=== PATIENT | female | born 1985 | race Caucasian/White ===

== ENCOUNTER 2018-07-17 18:03 | Inpatient (IN) ==
[2018-07-17 21:14] LABS: Amphetamine Urine With Conf Neg (Neg); Benzodiazepine Urine With Conf Neg (Neg)
[2018-07-17 21:17] LABS: Bacteria,Urine Rare /hpf; Bilirubin,Urine Negative (Negative); Clarity,Urine Clear (Clear); Color,Urine Straw (Yellw/Straw); Glucose,Urine (UA) Negative (Negative); Leukocyte Esterase,Urine Negative (Negative); Nitrite,Urine Negative (Negative); Specific Gravity,Urine 1.006 (1.002-1.035); Squamous Epithelial Cell,Urine <1 /hpf (0-5)
[2018-07-17 21:19] LABS: Baso % (Auto) 0.3 % (0.0-2.0); Eos # (Auto) 0.1 th/mm3 (0.0-0.4); Eos % (Auto) 0.7 % (0.0-4.0); Hematocrit 34.1 % (35.0-46.0); Hemoglobin 11.4 gm/dL (11.6-15.3); Lymph # (Auto) 2.4 th/mm3 (1.0-4.8); Lymph % (Auto) 22.1 % (9.0-44.0); Mean Corpuscular HGB Conc 33.5 % (32.0-36.0); Mean Corpuscular Hemoglobin 30.1 pg (27.0-34.0); Mean Corpuscular Volume 89.8 fL (80.0-100.0); Mean Platelet Volume 8.6 fL (7.0-11.0); Mono # (Auto) 0.6 th/mm3 (0.0-0.9); Mono % (Auto) 5.6 % (0.0-8.0); Neut # (Auto) 7.8 th/mm3 (1.8-7.7); Neut % (Auto) 71.3 % (16.0-70.0); Platelet Count 288 th/mm3 (150-450); White Blood Count 10.9 th/mm3 (4.0-11.0)
[2018-07-17] MEDS ORDERED: fentaNYL Citrate Inj 100 MCG/2 ML Ampul IV.PUSH PRN ×2 (22:35)
[2018-07-17] MEDS ORDERED: Sod Chloride 0.9% Inj 1,000 ML IV.CONT PRN (22:35)
[2018-07-17] MEDS ORDERED: Naloxone Inj 0.4 MG/ML Vial IV.PUSH PRN (22:35)
[2018-07-17] MEDS ORDERED: Sodium Chlor 0.9% Inj 500 ML IV.SIG PRN (22:35)
[2018-07-17] MEDS ORDERED: Oxytocin 30 Units/500ml Premix 30 UNITS/500 ML BAG IV.SIG ONE (22:35)
[2018-07-17] MEDS ORDERED: Citric Acid/Sodium Citrate Liq 30 ML UDC PO SCH (22:45)
[2018-07-18] MEDS ORDERED: Acetaminophen 325 MG Tablet PO PRN (05:14)
[2018-07-18] MEDS ORDERED: Oxytocin 30 Units/500ml Premix 30 UNITS/500 ML BAG IV.SIG PRN ×2 (05:16→23:31)
[2018-07-18] MEDS ORDERED: [UNRECOGNIZED DRUG - REMARK] OTHER ONE (06:00)
[2018-07-18 06:06] LABS: Albumin 3.1 g/dL (3.4-5.0); Uric Acid 3.2 mg/dl (2.6-6.0)
[2018-07-18 06:08] LABS: Total Protein 7.2 g/dL (6.4-8.2)
[2018-07-18] MEDS ORDERED: fentaNYL 2MCG-Bupiv 0.125% Epi 150 ML EPIDURAL ONE (13:51)
[2018-07-18] MEDS ORDERED: Lidocaine PF 1% Inj 5 ML Vial ONE (13:52)
[2018-07-18] MEDS ORDERED: Lidocaaine 1.5%/Epinephrine 1:200,000 PF Inj 5 ML Amp ONE (13:52)
[2018-07-18] MEDS ORDERED: fentaNYL 2MCG-Bupiv 0.125% Epi 150 ML EPIDURAL PRN (15:00)
[2018-07-18] MEDS ORDERED: fentaNYL Citrate Inj 100 MCG/2 ML Ampul EPIDURAL ONE (15:00)
[2018-07-18] MEDS ORDERED: Lidocaine 2%/Epinephrine 1:100,000 Inj 20 ML Vial ONE (18:02)
[2018-07-18] MEDS ORDERED: Morphine Sulfate PF Inj 5 MG/10 ML Ampul ONE (18:08)
[2018-07-18] MEDS ORDERED: fentaNYL Citrate Inj 250 MCG/5 ML Ampul ONE (18:08)
[2018-07-18] MEDS ORDERED: Oxytocin 30 Units/500ml Premix 30 UNITS/500 ML BAG IV.SIG ONE (20:30)
[2018-07-19 04:19] VITALS: O2SAT 97
[2018-07-19 05:55] LABS: Baso % (Auto) 0.1 % (0.0-2.0); Hemoglobin 9.1 gm/dL (11.6-15.3); Lymph # (Auto) 1.3 th/mm3 (1.0-4.8); Lymph % (Auto) 9.9 % (9.0-44.0); Mean Corpuscular HGB Conc 33.6 % (32.0-36.0); Mean Corpuscular Hemoglobin 30.1 pg (27.0-34.0); Mean Corpuscular Volume 89.6 fL (80.0-100.0); Mean Platelet Volume 8.2 fL (7.0-11.0); Mono # (Auto) 0.7 th/mm3 (0.0-0.9); Mono % (Auto) 5.3 % (0.0-8.0); Neut # (Auto) 11.3 th/mm3 (1.8-7.7); Neut % (Auto) 84.7 % (16.0-70.0); Platelet Count 221 th/mm3 (150-450); Red Blood Count 3.01 mil/mm3 (4.00-5.30); Red Cell Distribution Width 12.8 % (11.6-17.2); White Blood Count 13.4 th/mm3 (4.0-11.0)
[2018-07-19] MEDS: Levothyroxine 75 MCG Tablet PO SCH (06:31)
[2018-07-19] MEDS: Ketorolac Inj 30 MG/ML (IVP) Vial IV.PUSH PRN ×2 (08:46→19:12)
--- NOTE | 2018-07-19 12:44 | P.PNOB ---
Subjective Post op day: 1 Objective Vital Signs/I&O: Vital Signs 07/18/18 12:57 07/18/18 13:05 07/18/18 14:10 Temperature Pulse Rate 60 53 L 71 Respiratory Rate Blood Pressure 175/109 H 140/75 143/92 H Pulse Oximetry 07/18/18 14:36 07/18/18 14:41 07/18/18 14:55 Temperature Pulse Rate 67 61 59 L Respiratory Rate Blood Pressure 128/64 142/76 H 137/82 Pulse Oximetry 07/18/18 15:10 07/18/18 15:15 07/18/18 15:25 Temperature 98.1 F Pulse Rate 58 L 78 Respiratory Rate Blood Pressure 136/77 143/93 H Pulse Oximetry 07/18/18 15:45 07/18/18 16:16 07/18/18 16:31 Temperature Pulse Rate 67 72 64 Respiratory Rate Blood Pressure 103/72 108/47 L 146/82 H Pulse Oximetry 07/18/18 17:01 07/18/18 17:31 07/18/18 18:01 Temperature Pulse Rate 67 77 102 H Respiratory Rate Blood Pressure 150/86 H 144/87 H 153/98 H Pulse Oximetry 07/18/18 19:30 07/18/18 19:45 07/18/18 20:00 Temperature 98.1 F Pulse Rate 79 82 85 Respiratory Rate 19 18 18 Blood Pressure 131/79 128/77 139/85 Pulse Oximetry 07/18/18 20:15 07/18/18 20:25 07/18/18 21:30 Temperature 98.2 F 97.8 F Pulse Rate 76 81 65 Respiratory Rate 18 18 20 Blood Pressure 130/71 134/76 158/56 H Pulse Oximetry 07/19/18 00:00 07/19/18 02:31 07/19/18 04:00 Temperature 98.0 F 98.4 F 98.4 F Pulse Rate 55 L 60 60 Respiratory Rate 18 20 20 Blood Pressure 153/82 H 133/88 133/88 Pulse Oximetry 97 07/19/18 07:37 Temperature 98.1 F Pulse Rate 63 Respiratory Rate 18 Blood Pressure 122/64 Pulse Oximetry Intake & Output 07/18/18 07/19/18 07/19/18 18:59 06:59 18:59 Intake Total 1000 / 1000 Balance 1000 / 1000 Weight 94 kg Intake: IV 1000 / 1000 LR 1000 mL Inj 1,000 ML @ 125 1000 / 1000 mls/hr IV.CONT .Q8H [facility] Rx#: [id number] Other: Weight On Admission 94 kg Result Diagrams: 07/19/18 05:02 Objective Remarks: GENERAL: Well-nourished, well-developed patient. CARDIOVASCULAR: Regular rate and rhythm without murmurs, gallops, or rubs. RESPIRATORY: Breath sounds equal bilaterally. No accessory muscle use. ABDOMEN/GI: Abdomen soft, non-tender, bowel sounds present. Incision: Clean, dry and intact. Fundus: Firm, non-tender at umbilicus. GENITOURINARY: Light to moderate bleeding. EXTREMITIES: No cyanosis or edema, non-tender, without signs of DVT. Medications and IVs: Active Medications Acetaminophen (Tylenol) 650 mg PO Q4H PRN PRN Reason: HEADACHE Last Admin: 07/18/18 05:20 Dose: 650 mg Citric Acid/Sodium Citrate (Sodium Citrate/Citric Acid Liq) 30 ml PO [employer] [facility] Stop: 07/21/18 22:44 Diphtheria/Pertussis/Tetanus Vacc (Boostrix Vaccine Inj) 0.5 ml IM .ONCE ONE Stop: 07/19/18 16:01 Ephedrine Sulfate (Ephedrine/Ns Syringe) 10 mg IV.PUSH UNSCH PRN PRN Reason: SEE LABEL COMMENTS Stop: 07/19/18 14:59 Sodium Chloride (Ns Inj) 500 mls @ 1,000 mls/hr IV.SIG UNSCH PRN PRN Reason: SEE LABEL COMMENTS Sodium Chloride (Ns Inj) 1,000 mls @ 100 mls/hr IV.CONT .Q10H PRN PRN Reason: SEE LABEL COMMENTS Last Admin: 07/18/18 16:04 Dose: 100 mls/hr Oxytocin (Pitocin 30 Units/Ns 500 Ml Premix) 30 units in 500 mls @ 2 mls/hr IV.SIG TITRATE PRN; Protocol PRN Reason: For induction of labor Last Admin: 07/18/18 06:36 Dose: 2 milliunit/min, 2 mls/hr Fentanyl/Bupivacaine/Sodium Chlor (Fentanyl 2 Mcg-Bupiv 0.125% Epi) 150 mls @ 10 mls/hr EPIDURAL PRN PRN PRN Reason: for Labor Pain Last Admin: 07/18/18 14:00 Dose: 10 mls/hr Lactated Ringer's (Lr 1000 Ml Inj) 1,000 mls @ 100 mls/hr IV.CONT .Q10H [facility] Stop: 07/19/18 19:30 Last Admin: 07/19/18 04:30 Dose: 100 mls/hr Oxytocin (Pitocin 30 Units/Ns 500 Ml Premix) 30 units in 500 mls @ 100 mls/hr IV.SIG UNSCH PRN PRN Reason: Heavy bleeding Ketorolac Tromethamine (Toradol Inj) 30 mg IV.PUSH Q8H PRN PRN Reason: PAIN; WHEN UNABLE TO TAKE PO Stop: 07/23/18 21:30 Last Admin: 07/19/18 08:46 Dose: 30 mg Levothyroxine Sodium (Synthroid) 75 mcg PO DAILY@0600 [facility] Last Admin: 07/19/18 06:31 Dose: 75 mcg Lidocaine HCl (Xylocaine 1% Inj) 0.1 ml I-DERMAL PRN PRN PRN Reason: For IV start Stop: 07/20/18 22:34 Lidocaine HCl (Xylocaine 1% Inj) 10 ml INFILTRATN PRN PRN PRN Reason: For episiotomy repair Stop: 07/19/18 22:34 Measles/Mumps/Rubella Vaccine Live (M-M-R Ii Vaccine Inj) 0.5 ml SQ .ONCE ONE Stop: 07/19/18 16:01 Mineral Oil (Muri-Lube Oil) 10 ml TOPICAL PRN PRN PRN Reason: PRN perineal massage Miscellaneous Information (Misc Information) 1 each OTHER UNSCH PRN PRN Reason: SEE LABEL COMMENTS Stop: 07/19/18 14:52 Miscellaneous Information (Misc Information) 1 each OTHER UNSCH PRN PRN Reason: SEE LABEL COMMENTS Stop: 07/19/18 14:52 Naloxone HCl (Narcan Inj) 0.1 mg IV.PUSH Q2M PRN PRN Reason: for opiate reversal Ondansetron HCl (Zofran Inj) 4 mg IV.PUSH Q6H PRN PRN Reason: NAUSEA Last Admin: 07/19/18 09:50 Dose: 4 mg Oxycodone/Acetaminophen (Percocet 5/325 Mg) 1 tab PO Q4H PRN PRN Reason: PAIN SCALE 3 TO 5 Last Admin: 07/19/18 09:49 Dose: 1 tab Oxycodone/Acetaminophen (Percocet 5/325 Mg) 2 tab PO Q4H PRN PRN Reason: PAIN SCALE 6 TO 10 Vit/Calcium/Iron/Folic Ac (Stuartnatal Plus 3) 1 tab PO DAILY [facility] Sodium Chloride (Ns Flush) 2 ml IV.FLUSH BID [facility] Last Admin: 07/18/18 22:50 Dose: Not Given Sodium Chloride (Ns Flush) 2 ml IV.FLUSH PRN PRN PRN Reason: FLUSH AFTER USING IV ACCESS Zolpidem Tartrate (Ambien) 10 mg PO HS PRN PRN Reason: SLEEP Last Admin: 07/17/18 23:06 Dose: 10 mg Assessment and Plan - Plan POD # 1 s/p c/s doing well, BP wnl, no other signs preeclampsia...routine care
[2018-07-19] MEDS ORDERED: Measles/Mumps/Rubella Vaccine Inj 0.5 ML Vial SQ ONE (16:00)
[2018-07-19] MEDS ORDERED: Diphtheria/Tetanus/Pertussis Vaccine Inj 0.5 ML Syringe IM ONE (16:00)
[2018-07-20] MEDS: Levothyroxine 75 MCG Tablet PO SCH (05:23)
[2018-07-20] MEDS: Ketorolac Inj 30 MG/ML (IVP) Vial IV.PUSH PRN ×2 (05:24→14:40)
[2018-07-20] MEDS: Prenatal Vit/Ca/Iron/Folic Acid Tablet PO SCH (09:51)
--- NOTE | 2018-07-20 13:31 | P.PNOB ---
Subjective Post op day: 2 Objective Vital Signs/I&O: Vital Signs 07/19/18 13:40 07/19/18 19:49 07/20/18 07:55 Temperature 99.1 F 98.0 F Pulse Rate 98 H 68 Respiratory Rate 18 18 20 Blood Pressure 128/82 105/55 L Result Diagrams: 07/19/18 05:02 Objective Remarks: GENERAL: Well-nourished, well-developed patient. CARDIOVASCULAR: Regular rate and rhythm without murmurs, gallops, or rubs. RESPIRATORY: Breath sounds equal bilaterally. No accessory muscle use. ABDOMEN/GI: Abdomen soft, non-tender, bowel sounds present. Incision: Clean, dry and intact. Fundus: Firm, non-tender at umbilicus. GENITOURINARY: Light to moderate bleeding. EXTREMITIES: No cyanosis or edema, non-tender, without signs of DVT. Medications and IVs: Active Medications Acetaminophen (Tylenol) 650 mg PO Q4H PRN PRN Reason: HEADACHE Last Admin: 07/18/18 05:20 Dose: 650 mg Citric Acid/Sodium Citrate (Sodium Citrate/Citric Acid Liq) 30 ml PO [employer] [facility] Stop: 07/21/18 22:44 Sodium Chloride (Ns Inj) 500 mls @ 1,000 mls/hr IV.SIG UNSCH PRN PRN Reason: SEE LABEL COMMENTS Sodium Chloride (Ns Inj) 1,000 mls @ 100 mls/hr IV.CONT .Q10H PRN PRN Reason: SEE LABEL COMMENTS Last Admin: 07/18/18 16:04 Dose: 100 mls/hr Oxytocin (Pitocin 30 Units/Ns 500 Ml Premix) 30 units in 500 mls @ 2 mls/hr IV.SIG TITRATE PRN; Protocol PRN Reason: For induction of labor Last Admin: 07/18/18 06:36 Dose: 2 milliunit/min, 2 mls/hr Fentanyl/Bupivacaine/Sodium Chlor (Fentanyl 2 Mcg-Bupiv 0.125% Epi) 150 mls @ 10 mls/hr EPIDURAL PRN PRN PRN Reason: for Labor Pain Last Admin: 07/18/18 14:00 Dose: 10 mls/hr Oxytocin (Pitocin 30 Units/Ns 500 Ml Premix) 30 units in 500 mls @ 100 mls/hr IV.SIG UNSCH PRN PRN Reason: Heavy bleeding Ketorolac Tromethamine (Toradol Inj) 30 mg IV.PUSH Q8H PRN PRN Reason: PAIN; WHEN UNABLE TO TAKE PO Stop: 07/23/18 21:30 Last Admin: 07/20/18 05:24 Dose: 30 mg Levothyroxine Sodium (Synthroid) 75 mcg PO DAILY@0600 ON LICENSE OF [facility] Last Admin: 07/20/18 05:23 Dose: 75 mcg Lidocaine HCl (Xylocaine 1% Inj) 0.1 ml I-DERMAL PRN PRN PRN Reason: For IV start Stop: 07/20/18 22:34 Mineral Oil (Muri-Lube Oil) 10 ml TOPICAL PRN PRN PRN Reason: PRN perineal massage Naloxone HCl (Narcan Inj) 0.1 mg IV.PUSH Q2M PRN PRN Reason: for opiate reversal Ondansetron HCl (Zofran Inj) 4 mg IV.PUSH Q6H PRN PRN Reason: NAUSEA Last Admin: 07/19/18 09:50 Dose: 4 mg Oxycodone/Acetaminophen (Percocet 5/325 Mg) 1 tab PO Q4H PRN PRN Reason: PAIN SCALE 3 TO 5 Last Admin: 07/20/18 05:23 Dose: 1 tab Oxycodone/Acetaminophen (Percocet 5/325 Mg) 2 tab PO Q4H PRN PRN Reason: PAIN SCALE 6 TO 10 Last Admin: 07/20/18 00:04 Dose: 2 tab Vit/Calcium/Iron/Folic Ac (Stuartnatal Plus 3) 1 tab PO DAILY ON [facility] OF [facility] Last Admin: 07/20/18 09:51 Dose: Not Given Sodium Chloride (Ns Flush) 2 ml IV.FLUSH BID ON LICENSE OF [facility] Last Admin: 07/20/18 09:51 Dose: Not Given Sodium Chloride (Ns Flush) 2 ml IV.FLUSH PRN PRN PRN Reason: FLUSH AFTER USING IV ACCESS Last Admin: 07/20/18 05:24 Dose: 2 ml Zolpidem Tartrate (Ambien) 10 mg PO HS PRN PRN Reason: SLEEP Last Admin: 07/17/18 23:06 Dose: 10 mg Assessment and Plan - Plan POD # 2 s/p c/s doing well, BP wnl, no other signs preeclampsia...routine care
--- NOTE | 2018-07-20 19:53 | MP ---
cc: Mariana Mann MD DATE OF OPERATION: 07/18/2018 PREOPERATIVE DIAGNOSIS: Intrauterine at 36 weeks and 6 days gestation with mild preeclampsia with intolerance to labor. POSTOPERATIVE DIAGNOSIS: Intrauterine at 36 weeks and 6 days gestation with mild preeclampsia with intolerance to labor. PROCEDURE PERFORMED: Primary low transverse section. OPERATING SURGEON: Mariana Mann MD ANESTHESIA: Epidural. FINDINGS: In surgery included a viable female weighing 5 pounds 11 ounces with Apgars 9 and 9. Normal appearing tubes and ovaries bilaterally. Nuchal cord was noted. BLOOD LOSS: 800 mL. COMPLICATIONS: None. PROCEDURE IN DETAIL: After proper consents were obtained, blood had been already typed and screened. The patient was taken to the operating room where an adequate level of epidural was achieved. She was then placed in the dorsal position, sterilely prepped and draped, and a Andrews catheter had already been placed. At this time using a sharp knife, a Pfannenstiel skin incision was made. This was carried down to the fascia using Bovie cautery. The fascia was nicked in the midline and extended superior laterally on each side. With sharp and blunt dissection of the muscles off of the fascia, peritoneum was identified, grasped with 2 hemostats and entered sharply with the Metzenbaum scissors. This incision was extended superiorly and inferiorly paying close attention to the bladder. The bladder blade was placed. Bladder flap was developed. Bladder blade was replaced. We made a transverse incision in the lower uterine segment. This was extended using finger fracture technique. We had controlled delivery of the vertex. Bulb suction to the oropharynx and the nares. Nuchal cord was removed x1. Body was delivered. The cord was delayed in clamping by 45 seconds and then it was clamped x2, cut in between, and the was handed to team in attendance. A viable female with Apgars 9 and 9 at this time. Cord blood sample was obtained. Placenta was removed. Uterus was exteriorized and wiped clean of clots and debris. The uterine incision was closed using #1 chromic suture, starting at each apex meeting in the midline in a running interlocking fashion. Excellent hemostasis was noted. We performed irrigation of the abdominal pelvic cavity. We placed the uterus back into the cavity. Hemostasis was assured. We then reapproximated the muscles using a #1 chromic suture x1. We closed the fascia using 0 Vicryl starting at each apex meeting in the midline in a running fashion. Irrigation was performed to the subcu. Hemostasis achieved with the Bovie cautery. Skin was closed with michael and all sponge, lap, and needle count correct x3. MD VERONICA Kerr/jaren , 05:07 PM , 05:13 PM
[2018-07-21] MEDS: Prenatal Vit/Ca/Iron/Folic Acid Tablet PO SCH (08:12)
[2018-07-21] MEDS: Levothyroxine 75 MCG Tablet PO SCH (08:17)
[2018-07-21 09:00] VITALS: RESP 20
[2018-07-21 09:33] VITALS: TEMP 99
[2018-07-21 12:59] VITALS: BP 145/73; PULSE 75
[2018-07-21] MEDS ORDERED: Diphtheria/Tetanus/Pertussis Vaccine Inj 0.5 ML Syringe IM ONE (13:00)
== END 2018-07-21 13:25 | disposition home or self-care (01) ==
LOC: H2E 18:03 → H1EA 07-18 20:42
PROVIDERS: ADMIT Obstetrics & Gynecology; ATTEND Obstetrics & Gynecology